=== PATIENT | male | born 1960 | race Caucasian/White ===

== ENCOUNTER 2017-06-18 19:21 | Observation (INO) | payer BC ==
[~2017-06-18] VITALS: Ht 172.7 cm; Wt 110.0 kg
[~2017-06-18 19:21] MED LIST: AMLODIPINE BESYL5 MG PO; ASPIRIN325 MG PO; Aspirin E.C. PO; CARVEDILOL25 MG PO; CLOPIDOGREL75 MG PO; DILTIAZEM 24HR180 MG PO; GEMFIBROZIL600 MG PO; GLUCOSAMINE &1 EAC1 PO; LISINOPRIL40 MG PO; NITROGLYCERIN0.4 MG SL; NORVASC5 MG PO; PROAIR HFA8.5 GM IH; SIMVASTATIN40 MG PO
[2017-06-18 19:58] LABS: HEMATOCRIT 41.5 % (38.0-50.0); MCH 28.5 PG (29.0-34.0); MCHC 33.3 G/DL (30.0-36.0); MCV 85.7 FL (86-99); MEAN PLAT.VOLUME 9.2 uM^3 (9.0-12.4); PLATELET COUNT 223 K/uL (156-360); RBC DIS.WIDTH-SD 40.4 % (39-53); RED BLOOD COUNT 4.84 M/uL (4.00-5.50); WHITE BLOOD COUNT 8.4 K/uL (4.1-10.2)
[2017-06-18 20:11] LABS: CHLORIDE 104 mEq/L (99-109)
[2017-06-18 20:12] LABS: POTASSIUM 3.5 mEq/L (3.7-5.4); SODIUM 139 mEq/L (136-147)
[2017-06-18 20:13] LABS: GLUCOSE 82 mg/dL (70-99)
[2017-06-18 20:15] LABS: ANION GAP 11 MEQ/L (2-14)
[2017-06-18 20:17] LABS: GFR ESTIMATE (CALCULATED) > 59 mL/min/
[2017-06-18 20:18] LABS: UREA NITROGEN (BUN) 24 mg/dL (9-23)
[2017-06-18 20:21] LABS: TROP-I INTERPRETATION NEGATIVE; TROPONIN-I < 0.01 ng/mL (0.0-0.30)
[2017-06-18] MEDS ORDERED: ASPIR 8181 M1 PO (22:46)
[2017-06-18] MEDS ORDERED: FLONASE16 G1 BOTH NARES (22:46)
[2017-06-18] MEDS ORDERED: METFORMIN HCL1000 MG PO (22:46)
[2017-06-18] MEDS ORDERED: HYDROCHLOROTH12.5 M3 PO (22:46)
[2017-06-18] MEDS ORDERED: CLARITIN,ALAVAR10 MG PO (22:46)
[2017-06-19] VITALS: BP 113/91
[2017-06-19 04:31] VITALS: BP 137/72
[2017-06-19 05:31] LABS: HEMATOCRIT 39.1 % (38.0-50.0); MCH 28.9 PG (29.0-34.0); MCHC 33.5 G/DL (30.0-36.0); MCV 86.3 FL (86-99); MEAN PLAT.VOLUME 9.2 uM^3 (9.0-12.4); PLATELET COUNT 184 K/uL (156-360); RBC DIS.WIDTH-CV 13.2 % (11.8-14.6); RBC DIS.WIDTH-SD 41.3 % (39-53); RED BLOOD COUNT 4.53 M/uL (4.00-5.50)
[2017-06-19 05:43] LABS: D-DIMER ELISA < 150.00 ng/mLDDU (<230)
[2017-06-19 05:48] LABS: TROP-I INTERPRETATION NEGATIVE; TROPONIN-I 0.01 ng/mL (0.0-0.30)
[2017-06-19 05:59] LABS: ANION GAP 10 MEQ/L (2-14); CHLORIDE 105 MEQ/L (99-109); GFR ESTIMATE (CALCULATED) > 59 mL/min/; GLUCOSE 99 mg/dL (70-99); POTASSIUM 3.6 MEQ/L (3.7-5.4); SAMPLE HEMOLYSIS CHECK 0; SAMPLE ICTERIC CHECK 0; SAMPLE LIPEMIA CHECK 0; SODIUM 141 MEQ/L (136-147); UREA NITROGEN (BUN) 20 mg/dL (9-23)
[2017-06-19 07:15] VITALS: BP 132/76
[2017-06-19 12:56] LABS: TROP-I INTERPRETATION NEGATIVE; TROPONIN-I < 0.01 ng/mL (0.0-0.30)
[2017-06-19 17:50] VITALS: BP 146/82
[2017-06-19 19:26] VITALS: BP 130/73
[2017-06-19 20:46] LABS: POINT-OF-CARE METER ID UU13113781
[2017-06-20 00:23] VITALS: BP 128/73
[2017-06-20 05:33] VITALS: BP 147/80
[2017-06-20 08:09] VITALS: BP 144/74
[2017-06-20 10:28] LABS: HEMATOCRIT 40.5 % (38.0-50.0); MCHC 32.1 G/DL (30.0-36.0); MCV 87.3 FL (86-99); MEAN PLAT.VOLUME 9.7 uM^3 (9.0-12.4); PLATELET COUNT 187 K/uL (156-360); RBC DIS.WIDTH-CV 13.2 % (11.8-14.6); RED BLOOD COUNT 4.64 M/uL (4.00-5.50); WHITE BLOOD COUNT 5.3 K/uL (4.1-10.2)
[2017-06-20 10:56] LABS: ANION GAP 7 MEQ/L (2-14); CHLORIDE 106 MEQ/L (99-109); GFR ESTIMATE (CALCULATED) > 59 mL/min/; GLUCOSE 145 mg/dL (70-99); POTASSIUM 4.2 MEQ/L (3.7-5.4); SAMPLE HEMOLYSIS CHECK 0; SAMPLE ICTERIC CHECK 0; SAMPLE LIPEMIA CHECK 0; SODIUM 139 MEQ/L (136-147); UREA NITROGEN (BUN) 11 mg/dL (9-23)
== END 2017-06-20 12:34 | disposition home or self-care (01) ==
LOC: EME 19:21 → 4EAST 22:36 → EDOF 22:36 → 2SOUTH 22:36 → EDOF 22:36 → 5WEST 22:36 → ENRESERV 22:41 → 5WEST 23:47 → ENRESERV 06-19 12:54 → 2SOUTH 06-19 12:57 → ENRESERV 06-19 16:24 → 4EAST 06-19 17:20 → 2SOUTH 06-19 17:26 → ENRESERV 06-19 17:26 → 4EAST 06-19 17:40
PROVIDERS: Hospitalist; Internal Medicine
DX: I25.10 Atherosclerotic heart disease of native coronary artery without angina pectoris (principal); Z95.5 Presence of coronary angioplasty implant and graft; I10 Essential (primary) hypertension; E78.2 Mixed hyperlipidemia; I25.2 Old myocardial infarction; E11.9 Type 2 diabetes mellitus without complications; Z82.49 Family history of ischemic heart disease and other diseases of the circulatory system; F12.90 Cannabis use, unspecified, uncomplicated; E66.9 Obesity, unspecified; Z68.36 Body mass index [BMI] 36.0-36.9, adult; Z86.73 Personal history of transient ischemic attack (TIA), and cerebral infarction without residual deficits
CPT/HCPCS: 71020; 80048; 82948; 84484; 85027; 85379; 93005; 99281; 99285; C1769; C1887; G0378; J1644; J1650; J1815; J2250; J2405; J3010; J7040